=== PATIENT | female | born 2000 | race African-American/Black ===

== ENCOUNTER 2020-05-25 15:40 | Observation (INO) | payer MEDICAID ==
[~2020-05-25] VITALS: Ht 152.4 cm; Wt 91.6 kg
== END 2020-05-25 19:10 | disposition home or self-care (01) ==
LOC: SPU 15:40
PROVIDERS: ADMIT Obstetrics & Gynecology; ATTEND Obstetrics & Gynecology
DX: O42.92 Full-term premature rupture of membranes, unspecified as to length of time between rupture and onset of labor (principal); O62.9 Abnormality of forces of labor, unspecified; Z3A.39 39 weeks gestation of pregnancy
CPT/HCPCS: 76815; G0378